=== PATIENT | female | born 1965 | race Caucasian/White ===

== ENCOUNTER 2019-02-15 11:01 | Emergency (ER) | payer SELFPAY ==
[~2019-02-15] VITALS: Ht 152.4 cm; Wt 68.2 kg
[2019-02-15 11:11] VITALS: Ht 152.4 cm; Wt 68.2 kg
[2019-02-15] MEDS ORDERED: ONDANSETRON 4 MG INJ IV STA (11:54)
[2019-02-15] MEDS ORDERED: KETOROLAC 30 MG INJ IV STA (11:54)
[2019-02-15] MEDS ORDERED: ONDA4TAB14 PO (13:51)
[2019-02-15] MEDS ORDERED: IBUP-1542 PO (13:51)
[2019-02-15 14:16] VITALS: BP 118/64; PULSE 67; RESP 18
--- NOTE | 2019-02-15 15:03 | ERD ---
ER Documentation Chief Complaint Chief Complaint abdominal pain this morning. HPI Patient is a 54-year-old female with no medical problems who presents with epigastric pain. The patient symptoms started at 6 AM. She describes it as constant and a "large pain". She has nausea and vomiting. She has no fevers and no diarrhea. She tried Advil for the pain. She does not currently have a primary doctor. Upon review of old medical records this is the patient's first visit to the emergency department. ROS All systems reviewed and are negative except as per history of present illness. Medications Home Meds Active Scripts Ondansetron (Ondansetron Odt) 4 Mg Tab.rapdis, 4 MG PO Q6H PRN for NAUSEA AND/OR VOMITING, #10 TAB Prov:GAGANDEEP ROSALES MD 02/15/19 Ibuprofen* (Motrin*) 600 Mg Tab, 600 MG PO Q6H PRN for PAIN AND OR ELEVATED TEMP, #30 TAB Prov:GAGANDEEP ROSALES MD 02/15/19 PMhx/Soc Medical and Surgical Hx: pt denies Medical Hx, pt denies Surgical Hx Hx Alcohol Use: No Hx Substance Use: No Hx Tobacco Use: No Smoking Status: Never smoker FmHx Family History: No diabetes Physical Exam Vitals Vital Signs Date Temp Pulse Resp B/P (MAP) Pulse Ox O2 O2 Flow FiO2 Time Delivery Rate 02/15/19 97.9 67 18 118/64 98 Room Air 14:16 (82) 02/15/19 98.0 77 18 158/64 97 Room Air 12:17 (95) 02/15/19 98.9 67 18 178/80 97 11:11 (112) Physical Exam Const: Mild distress secondary to pain Head: Atraumatic Eyes: Normal Conjunctiva ENT: Normal External Ears, Nose and Mouth. Neck: Full range of motion. No meningismus. Resp: Clear to auscultation bilaterally Cardio: Regular rate and rhythm, no murmurs Abd: Soft, right upper quadrant tenderness to palpation without rebound or guarding Skin: No petechiae or rashes Back: No midline or flank tenderness Ext: No cyanosis, or edema Neur: Awake and alert Psych: Normal Mood and Affect Result Diagram: 02/15/19 1208 02/15/19 1208 Results 24 hrs Laboratory Tests Test 02/15/19 12:08 White Blood Count 11.1 10^3/ul Red Blood Count 4.85 10^6/ul Hemoglobin 13.8 g/dl Hematocrit 41.5 % Mean Corpuscular Volume 85.6 fl Mean Corpuscular Hemoglobin 28.5 pg Mean Corpuscular Hemoglobin Concent 33.3 g/dl Red Cell Distribution Width 13.2 % Platelet Count 336 10^3/UL Mean Platelet Volume 9.6 fl Immature Granulocytes % 0.500 % Neutrophils % 71.6 % Lymphocytes % 22.0 % Monocytes % 5.5 % Eosinophils % 0.2 % Basophils % 0.2 % Nucleated Red Blood Cells % 0.0 /100WBC Immature Granulocytes # 0.060 10^3/ul Neutrophils # 7.9 10^3/ul Lymphocytes # 2.4 10^3/ul Monocytes # 0.6 10^3/ul Eosinophils # 0.0 10^3/ul Basophils # 0.0 10^3/ul Nucleated Red Blood Cells # 0.0 10^3/ul Urine Color YELLOW Urine Clarity CLEAR Urine pH 7.0 Urine Specific [place] 1.021 Urine Ketones NEGATIVE mg/dL Urine Nitrite NEGATIVE mg/dL Urine Bilirubin NEGATIVE mg/dL Urine Urobilinogen NEGATIVE mg/dL Urine Leukocyte Esterase NEGATIVE [place]/ul Urine Microscopic RBC 5 /HPF Urine Microscopic WBC 0 /HPF Urine Squamous Epithelial Cells FEW /HPF Urine Bacteria FEW /HPF Urine Hemoglobin 1+ mg/dL Urine Glucose NEGATIVE mg/dL Urine Total Protein NEGATIVE mg/dl Sodium Level 141 mmol/L Potassium Level 4.0 mmol/L Chloride Level 107 mmol/L Carbon Dioxide Level 27 mmol/L Anion Gap 7 Blood Urea Nitrogen 14 mg/dl Creatinine 0.57 mg/dl Est Glomerular Filtrat Rate mL/min > 60 mL/min Glucose Level 108 mg/dl Calcium Level 9.0 mg/dl Total Bilirubin 0.5 mg/dl Direct Bilirubin 0.00 mg/dl Indirect Bilirubin 0.5 mg/dl Aspartate Amino Transf (AST/SGOT) 26 IU/L Alanine Aminotransferase (ALT/SGPT) 21 IU/L Alkaline Phosphatase 92 IU/L Total Protein 8.3 g/dl Albumin 4.2 g/dl Globulin 4.10 g/dl Albumin/Globulin Ratio 1.02 Lipase 96 U/L Current Medications Medications Dose Sig/Mac Start Time Status Last (Trade) Ordered Route PRN Stop Time Admin Dose Reason Admin Ondansetron 4 mg ONCE STAT 02/15/19 DC 02/15/19 HCl (Zofran IV 11:54 12:51 Inj) 02/15/19 11:55 Ketorolac 30 mg ONCE STAT 02/15/19 DC 02/15/19 Tromethamine IV 11:54 12:51 (Toradol) 02/15/19 11:55 Procedures/MDM Ultrasound the gallbladder shows gallstones without cholecystitis per radiology. Patient is a 54-year-old female with no medical problems who presents with abdominal pain. The patient was found to have biliary colic. I doubt cholecy stitis, pancreatitis, appendicitis, or bowel obstruction. I believe outpatient management is appropriate but the patient will need close follow-up with the primary doctor within 24 to 48 hours. The patient can return sooner for any worsening symptoms. Departure Diagnosis: Primary Impression: Biliary colic Condition: Fair Patient Instructions: Biliary Colic With Gallstone (Confirmed) Referrals: ADALI ABEBE MD Additional Instructions: Specialist:Usted tiene michael condicin mdica que requiere que salma a un especialista dentro de los prximos 1-2 partida.POR FAVOR,CON GOMEZ SEGUIMIENTO DE PRIMARIA PHSICIAN refferal. SI USTED NO TIENE UN MDICO GENERAL Y / O USTED NO PUEDE PAGAR ilda a un mdico,los siguientes RECURSOS sido suministrado a usted. ES GOMEZ RESPONSABILIDAD PARA SER VISTOS POR EL ESPECIALISTA: GAGANDEEP ROSALES MD Feb 15, 2019 15:03
== END 2019-02-15 14:18 | disposition home or self-care (01) ==
LOC: E/R 11:01
DX: K80.20 Calculus of gallbladder without cholecystitis without obstruction (principal)
CPT/HCPCS: 76705; 80053; 81001; 83690; 85025; J1885; J2405; 36415; 96374; 96375